=== PATIENT | male | born 1955 | race Caucasian/White ===

== ENCOUNTER → 2016-12-13 | Outpatient (CLI) | payer OTHER ==
--- NOTE | 2016-12-13 11:36 | RAD ---
Indication productive cough. Frontal and lateral views of the chest were obtained and are compared to an examination April 23, 2013. The heart and pulmonary vessels are normal. The lungs are clear. There has not been a significant change in the appearance of the chest compared to the previous exam. IMPRESSION: No acute or focal process. No significant change
== END | disposition home or self-care (01) ==
LOC: DXRADRC 11:15
PROVIDERS: ATTEND Nurse Practitioner Family
DX: J45.909 Unspecified asthma, uncomplicated (principal)
CPT/HCPCS: 71020

== ENCOUNTER → 2017-03-17 | Outpatient (CLI) | payer OTHER ==
--- NOTE | 2017-03-17 16:20 | RAD ---
Ultrasound of the thyroid gland 03/17/2017 Clinical history: History of thyroid nodules. Technique: A real-time ultrasound examination of the thyroid gland was performed. Multiple images were obtained. Findings: Reportedly the patient's most recent thyroid ultrasound was performed at the [facility]. Multiple requests have been made to obtain those images; however, there are available at this time. Continued efforts will be made to obtain these images if and when they do become available a comparison will be made and an addendum to this report will follow. The thyroid gland is mildly enlarged. The right lobe of the thyroid gland measures 4.6 x 1.5 x 1.6 cm in longitudinal, transverse and AP dimensions. The left lobe of thyroid gland measures 4.6 x 1.6 x 1.4 cm in size. The isthmus of the thyroid gland measures 8 mm in thickness. The thyroid gland is heterogeneous. 3 small oval-shaped predominantly anechoic nodules are seen involving the superior/midpole of the right lobe of the thyroid gland. These measure 2 mm in greatest diameter each. A 2.3 cm oval-shaped hypoechoic nodule is seen involving the inferior aspect of the right lobe of thyroid gland extending into the isthmus. This was reportedly biopsied previously. A 8 mm slightly complex nodule is seen involving the mid aspect of the left lobe of thyroid gland. No additional abnormality of the thyroid gland is seen. These findings are consistent with a multinodular goiter. Impression: Multinodular goiter.
== END | disposition home or self-care (01) ==
LOC: US 09:50
PROVIDERS: ATTEND Nurse Practitioner Family
DX: E04.2 Nontoxic multinodular goiter (principal)
CPT/HCPCS: 76536